=== PATIENT | female | born 1975 | race African-American/Black ===

== ENCOUNTER → 2020-01-11 | Day surgery (SDC) | payer OTHER | END | disposition home or self-care (01) | LOC: FMAMMOTONE 08:34 | PROVIDERS: ATTEND Internal Medicine | PROC: 0H9V3ZX Drainage of Bilateral Breast, Percutaneous Approach, Diagnostic (ICD-10-PCS; principal; 2020-01-11) | DX: N60.12 Diffuse cystic mastopathy of left breast (principal); N60.11 Diffuse cystic mastopathy of right breast; N60.22 Fibroadenosis of left breast; N60.21 Fibroadenosis of right breast | CPT/HCPCS: 19081; 19082; 76098-TC-FY; 87899; 88305-TC; A4648 ==